=== PATIENT | male | born 1990 ===

== ENCOUNTER 2020-11-15 11:19 | Inpatient (IN) ==
[2020-11-15 12:01] LABS: Basophils % 0.4 %; Eosinophils % 0.3 %; Hematocrit 46.5 % (37.5-50.1); Hemoglobin 15.3 g/dL (12.9-16.9); Immature Granulocytes % 0.2 % (0-4); Lymphocytes # 1.6 K/mcL (0.6-4.6); Lymphocytes % 15.9 %; Mean Corpuscular HGB Conc 32.9 g/dL (31.6-35.5); Mean Platelet Volume 9.7 fL (9.4-12.4); Monocytes # 0.9 K/mcL (0.0-1.3); Monocytes % 8.4 %; Neutrophils # 7.7 K/mcL (1.6-8.9); Platelet Count 332 K/mcL (140-400); Red Blood Count 5.67 M/mcL (4.19-5.50); Red Cell Distribution Width 13.9 % (11.5-14.5); Segmented Neutrophils % 74.8 %; White Blood Count 10.2 K/mcL (4.3-11.1)
[2020-11-15 12:12] LABS: Estimated Average Glucose 105 mg/dl; Hemoglobin A1C 5.3 %
[2020-11-15 12:17] LABS: Acetaminophen < 10 mcg/mL (10-20); BUN/Creatinine Ratio 21 (6-26); Blood Urea Nitrogen 21 mg/dL (6-20); Calcium 10.5 mg/dL (8.6-10.3); Carbon Dioxide 22 mEq/L (23-29); Chloride 104 mEq/L (98-107); Chol/HDL Ratio 3.4 (0-4.9); Cholesterol 128 mg/dL (< 200); Ethanol < 10 mg/dL (Less than 10); Glucose 109 mg/dL (70-105); HDL Cholesterol 38 mg/dL (40-59); LDL Cholesterol,Calculated 76 mg/dL (< 100); Osmolality,Calculated 296 (280-300); Potassium 3.4 mEq/L (3.5-5.1); Salicylate < 2.5 mg/dL (15.0-30.0); Sodium 141 mEq/L (136-145); Triglycerides 71 mg/dL (< 150); eGFR For African Americans > 60 (> 60); eGFR For Non-African Americans > 60 (> 60)
[2020-11-15 12:40] LABS: Amphetamine Screen,Urine Positive ng/mL (Cutoff=1000); Barbiturate Screen,Urine Negative ng/mL (Cutoff=200); Benzodiazepines Screen,Urine Negative ng/mL (Cutoff=200); Cannabinoid Screen,Urine Positive ng/mL (Cutoff = 50); Cocaine Screen,Urine Positive ng/mL (Cutoff= 300); Opiate Screen,Urine Negative ng/mL (Cutoff=300); Phencyclidine Screen,Urine Negative ng/mL (Cutoff=25)
[2020-11-15 13:33] LABS: Amorphous Sediment,Urine Few per hpf (None-Few); Bacteria,Urine Few per hpf (None-Few); Bilirubin,Urine Negative (Negative); Blood,Urine Negative (Negative); Clarity,Urine Turbid (Clear); Color,Urine Yellow (Yellow); Glucose,Urine (UA) Normal (Normal); Ketones,Urine 40 mg/dL (Negative); Leukocyte Esterase,Urine Negative (Negative); Mucus,Urine Few per lpf (None-Few); Nitrite,Urine Negative (Negative); Protein,Urine 100 mg/dL (Neg-Trace); Specific Gravity,Urine > 1.030 (1.010-1.025); Sperm,Urine Present (None Seen); WBC,Urine 0-3 per hpf (0-3)
[2020-11-15] MEDS ORDERED: *HR* LORazepam 2 MG/ML VIAL IM ONE (13:54)
[2020-11-15] MEDS ORDERED: Haloperidol Lactate 5 MG/ML VIAL IM ONE (14:05)
[2020-11-16] MEDS ORDERED: Piperacillin/Tazobactam 3.375 GM in 0.9 % Sodium Chloride Mini Bag 100 ML IVPB ONE (07:13)
[2020-11-16] MEDS ORDERED: 0.9 % Sodium Chloride 1,000 ML IVC ONE (07:13)
[2020-11-16] MEDS ORDERED: Ondansetron 4 MG/2 ML VIAL IVP PRN ×2 (08:06→14:39)
[2020-11-16] MEDS ORDERED: Naloxone 0.4 MG/ML INJ IVP PRN (08:06)
[2020-11-16] MEDS ORDERED: *HR* LORazepam 2 MG/ML VIAL IVP PRN (08:09)
[2020-11-16 08:21] LABS: Basophils % 0.3 %; Eosinophils % 0.1 %; Hematocrit 48.6 % (37.5-50.1); Immature Granulocytes % 0.3 % (0-4); Lymphocytes # 1.8 K/mcL (0.6-4.6); Lymphocytes % 12.4 %; Mean Corpuscular HGB Conc 32.9 g/dL (31.6-35.5); Mean Corpuscular Hemoglobin 27.1 pg (28.0-33.3); Mean Corpuscular Volume 82.2 fL (83.0-100.0); Mean Platelet Volume 9.6 fL (9.4-12.4); Monocytes % 7.2 %; Neutrophils # 11.3 K/mcL (1.6-8.9); Platelet Count 376 K/mcL (140-400); Red Blood Count 5.91 M/mcL (4.19-5.50); Red Cell Distribution Width 14.2 % (11.5-14.5); Segmented Neutrophils % 79.7 %; White Blood Count 14.1 K/mcL (4.3-11.1)
[2020-11-16 08:50] LABS: Alanine Aminotransferase 42 Units/L (7-52); Albumin 4.8 g/dL (3.5-5.7); Alkaline Phosphatase 90 Units/L (34-104); Aspartate Amino Transferase 52 Units/L (13-39); BUN/Creatinine Ratio 28 (6-26); Bilirubin,Direct 0.3 mg/dL (0.0-0.2); Bilirubin,Indirect 0.8 mg/dL (0.0-1.0); Bilirubin,Total 1.1 mg/dL (0.3-1.0); Blood Urea Nitrogen 26 mg/dL (6-20); Calcium 10.4 mg/dL (8.6-10.3); Carbon Dioxide 21 mEq/L (23-29); Chloride 105 mEq/L (98-107); Globulin 4.6 g/dL (2.4-3.5); Glucose 105 mg/dL (70-105); Osmolality,Calculated 299 (280-300); Potassium 3.8 mEq/L (3.5-5.1); Sodium 142 mEq/L (136-145); Total Protein 9.4 g/dL (6.4-8.9); Troponin I 0.04 ng/mL (< 0.04); eGFR For African Americans > 60 (> 60); eGFR For Non-African Americans > 60 (> 60)
[2020-11-16] MEDS: Ringers Solution, Lactated 1,000 ML IVC SCH ×2 (12:00→22:00)
[2020-11-16] MEDS: *HR* LORazepam 2 MG/ML VIAL IVP PRN ×2 (16:45→22:31)
[2020-11-16] MEDS: Acetaminophen IV 1,000 MG/100 ML BAG IVPB PRN (22:10)
[2020-11-17] MEDS: *HR* LORazepam 2 MG/ML VIAL IVP PRN (03:20)
[2020-11-17 06:30] LABS: Basophils % 0.3 %; Eosinophils % 0.2 %; Hematocrit 40.5 % (37.5-50.1); Immature Granulocytes % 0.4 % (0-4); Lymphocytes # 2.2 K/mcL (0.6-4.6); Lymphocytes % 20.1 %; Mean Corpuscular HGB Conc 32.6 g/dL (31.6-35.5); Mean Corpuscular Hemoglobin 27.6 pg (28.0-33.3); Mean Corpuscular Volume 84.7 fL (83.0-100.0); Mean Platelet Volume 9.8 fL (9.4-12.4); Monocytes # 1.1 K/mcL (0.0-1.3); Neutrophils # 7.4 K/mcL (1.6-8.9); Platelet Count 314 K/mcL (140-400); Red Blood Count 4.78 M/mcL (4.19-5.50); Red Cell Distribution Width 14.3 % (11.5-14.5); White Blood Count 10.7 K/mcL (4.3-11.1)
[2020-11-17 06:31] LABS: Hemoglobin 13.2 g/dL (12.9-16.9)
[2020-11-17 06:45] LABS: BUN/Creatinine Ratio 35 (6-26); Blood Urea Nitrogen 28 mg/dL (6-20); Calcium 9.4 mg/dL (8.6-10.3); Carbon Dioxide 25 mEq/L (23-29); Chloride 110 mEq/L (98-107); Glucose 100 mg/dL (70-105); Magnesium 2.1 mg/dL (1.6-2.6); Osmolality,Calculated 304 (280-300); Phosphorous 3.2 mg/dL (2.7-4.5); Potassium 3.5 mEq/L (3.5-5.1); Sodium 144 mEq/L (136-145); eGFR For African Americans > 60 (> 60); eGFR For Non-African Americans > 60 (> 60)
[2020-11-17] MEDS: Acetaminophen IV 1,000 MG/100 ML BAG IVPB PRN (23:09)
[2020-11-18] MEDS: *HR* LORazepam 2 MG/ML VIAL IVP PRN (00:43)
[2020-11-18 02:13] LABS: Hematocrit 39.1 % (37.5-50.1); Hemoglobin 13.2 g/dL (12.9-16.9); Mean Corpuscular HGB Conc 33.8 g/dL (31.6-35.5); Mean Corpuscular Hemoglobin 28.2 pg (28.0-33.3); Mean Corpuscular Volume 83.5 fL (83.0-100.0); Mean Platelet Volume 9.4 fL (9.4-12.4); Platelet Count 274 K/mcL (140-400); Red Blood Count 4.68 M/mcL (4.19-5.50); Red Cell Distribution Width 13.5 % (11.5-14.5); White Blood Count 9.8 K/mcL (4.3-11.1)
[2020-11-18 02:32] LABS: BUN/Creatinine Ratio 25 (6-26); Blood Urea Nitrogen 15 mg/dL (6-20); Calcium 9.1 mg/dL (8.6-10.3); Carbon Dioxide 25 mEq/L (23-29); Chloride 107 mEq/L (98-107); Glucose 135 mg/dL (70-105); Osmolality,Calculated 289 (280-300); Potassium 3.3 mEq/L (3.5-5.1); Sodium 138 mEq/L (136-145); eGFR For African Americans > 60 (> 60); eGFR For Non-African Americans > 60 (> 60)
[2020-11-18 04:20] VITALS: BP 138/99
[2020-11-18] MEDS ORDERED: Potassium Chloride 40 MEQ, Lidocaine 1% 2 ML in 0.9 % Sodium Chloride 500 ML IVPB ONE (08:43)
== END 2020-11-18 11:30 | disposition home or self-care (01) | DRG 897 ==
LOC: EMEROOARM 11:19 → 3BNU 11:19 → SUATTDRO 11-16 08:32 → 2NENU 11-16 10:56
PROVIDERS: ADMIT Internal Medicine; ATTEND Internal Medicine